=== PATIENT | male | born 1995 | race Caucasian/White ===

== ENCOUNTER 2016-12-28 13:09 | Emergency (ER) | payer BC ==
[~2016-12-28] VITALS: Wt 78.0 kg
[2016-12-28] MEDS ORDERED: POLY10DR19 BOTH EYES (13:53)
--- NOTE | 2016-12-28 16:39 | ERD ---
ER Documentation Chief Complaint Date/Time DATE: 12/28/16 TIME: 16:37 Chief Complaint R EYE SINCE YESTERDAY HPI This patient is a 29-year-old male presenting to the emergency department for right eye redness and eyelash crusting since yesterday. The patient states he started noticing left eye redness today. The patient denies vision complaints. The patient does not wear glasses or contacts. The patient has had no fevers , chills, or other symptoms. ROS All systems reviewed and are negative except as per history of present illness. Medications Home Meds Active Scripts Polymyxin B Sulfate-TMP* (Polymyxin B-TMP Eye Drops*) 10 Ml Drops, 1 DROP BOTH EYES QID for 7 Days, #1 BOTTLE Prov:GINO MARQUEZ PA-C 12/28/16 PMhx/Soc History of Surgery: No Anesthesia Reaction: No Hx Neurological Disorder: No Hx Respiratory Disorders: No Hx Cardiac Disorders: No Hx Psychiatric Problems: No Hx Miscellaneous Medical Probl: No Hx Alcohol Use: No Hx Substance Use: No Hx Tobacco Use: No FmHx Noncontributory for chief complaint Physical Exam Vitals Vital Signs Date Time Temp Pulse Resp B/P Pulse Ox O2 Delivery O2 Flow Rate FiO2 12/28/16 13:10 99.0 78 18 99 Physical Exam Const: The patient is resting comfortably in no acute distress. Head: Atraumatic Eyes: There is conjunctival injection present on the right eye. The left eye is normal in appearance. EOMs are intact bilaterally. ENT: Normal External Ears, Nose and Mouth. Neck: Full range of motion..~ No meningismus. Resp: Clear to auscultation bilaterally Cardio: Regular rate and rhythm, no murmurs Abd: Soft, non tender, non distended. Normal bowel sounds Skin: No petechiae or rashes Back: No midline or flank tenderness Ext: No cyanosis, or edema Neur: Awake and alert Psych: Normal Mood and Affect Procedures/MDM 29-year-old male presents secondary complaints of right eye redness with eyelash crusting. On physical examination the patient's vitals are within normal limits. The patient is afebrile. Examination of the right conjunctival reveals injection with some mild dried discharge present on his eyelashes. EOMs are intact and I have low suspicion for periorbital or orbital cellulitis or deep tissue infection. The patient is stable for outpatient management with a prescription for Polytrim. Strict ER return precautions discussed. The patient is to have close follow-up with the primary care physician. Departure Diagnosis: Primary Impression: Conjunctivitis Condition: Fair Patient Instructions: Conjunctivitis, Bacterial Referrals: [facility] YOU HAVE RECEIVED A MEDICAL SCREENING EXAM AND THE RESULTS INDICATE THAT YOU DO NOT HAVE A CONDITION THAT REQUIRES URGENT TREATMENT IN THE EMERGENCY DEPARTMENT. FURTHER EVALUATION AND TREATMENT OF YOUR CONDITION CAN WAIT UNTIL YOU ARE SEEN IN YOUR DOCTORS OFFICE WITHIN THE NEXT 1-2 DAYS. IT IS YOUR RESPONSIBILITY TO MAKE AN APPOINTMENT FOR [facility]- CARE. IF YOU HAVE A PRIMARY DOCTOR --you should call your primary doctor and schedule an appointment IF YOU DO NOT HAVE A PRIMARY DOCTOR YOU CAN CALL OUR PHYSICIAN REFERRAL HOTLINE AT IF YOU CAN NOT AFFORD TO SEE A PHYSICIAN YOU CAN CHOSE FROM THE FOLLOWING [facility] [address]. [facility] [address] [facility] [facility] [address] [facility] [address] [facility] [address] [facility]. [facility]. [address] [address] Additional Instructions: Follow up with your PCP within the next 1-3 days for a more thorough evaluation and a possible referral to a specialist. Return the the emergency department immediately if symptoms worsen or change. If you have any questions regarding medications, ask your pharmacist or us before you leave. If any adverse reactions, occur while taking your medications, discontinue the treatment and return to the emergency department immediately. If any new or worsening symptoms, uncontrolled fevers, or other unexplained symptoms occur, return to the emergency department immediately. Take your medications as directed, and complete the entire course of treatment. GINO MARQUEZ PA-C Dec 28, 2016 16:39
== END 2016-12-28 14:00 | disposition home or self-care (01) ==
LOC: FTE 13:09
DX: H10.9 Unspecified conjunctivitis (principal)
CPT/HCPCS: 99283

== ENCOUNTER 2018-02-15 07:13 | Emergency (ER) | END 2018-02-15 10:39 | disposition home or self-care (01) ==

== ENCOUNTER 2018-02-20 16:22 | Emergency (ER) | END 2018-02-20 20:57 | disposition home or self-care (01) ==

== ENCOUNTER 2018-03-05 12:17 | Emergency (ER) | END 2018-03-06 02:37 ==